=== PATIENT | female | born 1985 | race Two or more races ===

== ENCOUNTER → 2018-02-22 | Emergency (ER) | payer OTHER, MEDICAID ==
[~2018-02-22] VITALS: Ht 157.5 cm; Wt 77.1 kg
[2018-02-22 13:24] LABS: Urine WBC None Seen /hpf (0 - 5)
[2018-02-22 13:34] LABS: Urine Bacteria NONE SEEN /hpf (None Seen); Urine Blood Negative /uL (Negative); Urine Specific Gravity 1.003 (1.001-1.035)
[2018-02-22 13:58] LABS: Basophils # (auto) 0 uL; Basophils % (auto) 0.3 % (0.0-2.0); Eosinophils # (auto) 0 uL; Eosinophils % (auto) 0.4 % (0.0-7.0); Hemoglobin 13.8 g/dL (12.2-16.2); Lymphocytes # (auto) 1.3 uL; Lymphocytes % (auto) 20.4 % (10.0-50.0); Mean Corpuscular Hemoglobin 30.9 pg (28.0-32.0); Mean Corpuscular Hgb Conc. 34.6 g/dL (32.0-36.0); Mean Corpuscular Volume 89.4 fL (80.0-100.0); Monocytes # (auto) 0.3 uL; Neutrophils # (auto) 4.7 uL; Neutrophils % (auto) 73.9 % (37.0-80.0); Nucleated Red Blood Cells % 0.1 %; Platelet Count (auto) 148 10^3/uL (140-450); Red Blood Cells 4.47 10^6/uL (4.0-5.20); Red Cell Distribution Width 13.1 % (11.8-14.3); White Blood Cell 6.3 10^3/uL (4.4-10.8)
[2018-02-22 14:08] LABS: Calcium 8.8 mg/dL (8.5-10.1); Potassium 3.6 mmol/L (3.5-5.1)
[2018-02-22 14:14] LABS: Albumin 3.7 g/dL (3.4-5.0); BUN/Creatinine Ratio 13.2; Bilirubin, Total 0.3 mg/dL (0.2-1.0); Total Protein 7.6 g/dL (6.4-8.2)
[2018-02-23 00:39] VITALS: BP 140/65
== END | disposition home or self-care (01) ==
LOC: ER 13:02
DX: O99.611 Diseases of the digestive system complicating pregnancy, first trimester (principal); O26.891 Other specified pregnancy related conditions, first trimester; R10.84 Generalized abdominal pain; Z90.49 Acquired absence of other specified parts of digestive tract; Z3A.12 12 weeks gestation of pregnancy
CPT/HCPCS: 36415; 76801; 76817; 80053; 81001; 84702; 85025

== ENCOUNTER 2020-10-31 04:45 | Emergency (ER) | payer OTHER, MEDICAID | END 2020-10-31 05:19 | disposition left against medical advice (07) | LOC: ER 04:45 | DX: Z00.00 Encounter for general adult medical examination without abnormal findings (principal); Z53.21 Procedure and treatment not carried out due to patient leaving prior to being seen by health care provider ==